=== PATIENT | female | born 1945 | race Caucasian/White ===

== ENCOUNTER 2017-08-08 09:03 | Emergency (ER) | payer MEDICARE, BC ==
--- NOTE | 2017-08-08 09:36 | EDM.PDOC ---
ED HPI GENERAL MEDICAL PROBLEM - General Chief Complaint: General Stated Complaint: Feeling anxious Time Seen by Provider: 08/08/17 09:10 Source of Information: Reports: Patient History Limitations: Reports: No Limitations - History of Present Illness INITIAL COMMENTS - FREE TEXT/NARRATIVE: 72 YO WF presents to ER complaining of "feeling anxious". Pt states she gets these episodes periodically and takes ativan 0.5mg PO PRN. Pt denies chest pain , palpitations, or shortness of breath. Pt states her last anxiety attack was around and thinks the holidays are a trigger for her. Pt denies any suicidal or homicidal idealization, Pt denies auditory/visual hallucinations. Pt was seen by PCP in [place] 07/18/2017 and had a full physical. TSH- WNL. Duration: Chronic Location: Reports: Generalized Quality: Reports: Same as Previous Episode Improves with: Reports: None Worsens with: Reports: None Associated Symptoms: Reports: No Other Symptoms. Denies: Confusion, Chest Pain , Diaphoresis, Nausea/Vomiting, Shortness of Breath, Syncope Treatments [employer] DEPOSIT: Reports: Other Medication(s) Other Treatments [employer] DEPOSIT: ativan - Related Data Allergies Allergy/AdvReac Type Severity Reaction Status Date / Time No Known Drug Allergies Allergy Cannot Verified 08/08/17 09:13 Remember Home Meds: Home Meds Acetaminophen/Diphenhydramine [Tylenol Pm Ex-Strength Caplet] 1 each PO DAILY [History] Aspirin [Adult Low Dose Aspirin EC] 81 mg PO DAILY 08/08/17 [History] Calcium Carbonate/Vitamin D3 [Calcium 600 + Vit D 400 Softgl] 1 tab PO DAILY [History] Cholecalciferol (Vitamin D3) [Vitamin D3] 2,000 unit PO DAILY 08/08/17 [History] Fish Oil/[place]-3 Fatty Acids [Fish Oil] 1 each PO DAILY 08/08/17 [History] LORazepam [Ativan] 1 mg PO BID PRN 08/08/17 [History] Levothyroxine 75 mcg PO ACBREAKFAST 08/08/17 [History] Magnesium 250 mg PO DAILY 08/08/17 [History] Metoprolol Succinate [Toprol Xl] 100 mg PO DAILY 08/08/17 [History] Multivitamin [Multivitamins] 1 each PO DAILY 08/08/17 [History] Potassium 99 mg PO DAILY 08/08/17 [History] amLODIPine [Norvasc] 5 mg PO DAILY 08/08/17 [History] atorvaSTATin [Lipitor] 10 mg PO BEDTIME 08/08/17 [History] Social & Family History - Tobacco Use Smoking Status *Q: Never Smoker Second Hand Smoke Exposure: No - Caffeine Use Caffeine Use: Reports: Coffee, Soda - Alcohol Use Days Per Week of Alcohol Use: 1 Number of Drinks Per Day: 1 Total Drinks Per Week: 1 - Recreational Drug Use Recreational Drug Use: No ED ROS GENERAL - Review of Systems Review Of Systems: See Below Constitutional: Reports: No Symptoms HEENT: Reports: No Symptoms Respiratory: Reports: No Symptoms Cardiovascular: Reports: No Symptoms. Denies: Chest Pain, Palpitations Endocrine: Reports: No Symptoms GI/Abdominal: Reports: No Symptoms : Reports: No Symptoms Musculoskeletal: Reports: No Symptoms Skin: Reports: No Symptoms Neurological: Reports: No Symptoms Psychiatric: Reports: Anxiety. Denies: Agitation, Confusion, Hallucinations, Homicidal Ideation, Mood Lability, Suicidal Ideation Hematologic/Lymphatic: Reports: No Symptoms Immunologic: Reports: No Symptoms ED EXAM, GENERAL - Physical Exam Exam: See Below Exam Limited By: No Limitations General Appearance: Alert, WD/WN, No Apparent Distress, Anxious Eye Exam: Bilateral Eye: EOMI, PERRL Head: Atraumatic, Normocephalic Neck: Normal Inspection, Supple, Non-Tender, Full Range of Motion Respiratory/Chest: No Respiratory Distress, Lungs Clear, Normal Breath Sounds, No Accessory Muscle Use, Chest Non-Tender Cardiovascular: Normal Peripheral Pulses, Regular Rate, Rhythm, No Edema, No Gallop, No JVD, No Murmur, No Rub GI/Abdominal: Normal Bowel Sounds, Soft, Non-Tender, No Organomegaly, No Distention, No Abnormal Bruit, No Mass Back Exam: Normal Inspection, Full Range of Motion, NT Extremities: Normal Inspection, Normal Range of Motion, Non-Tender, Normal Capillary Refill, No Pedal Edema Neurological: Alert, Oriented, CN II-XII Intact, Normal Cognition, Normal Gait, Normal Reflexes, No Motor/Sensory Deficits Psychiatric: Normal Affect, Anxious, Depressed Mood, Tearful. No: Flat Affect Skin Exam: Warm, Dry, Intact, Normal Color, No Rash Lymphatic: No Adenopathy Course - Vital Signs Last Recorded V/S: Last Vital Signs Temp 36.9 C 08/08/17 09:08 Pulse 94 08/08/17 09:08 Resp 20 08/08/17 09:08 BP 163/84 H 08/08/17 09:08 Pulse Ox 97 08/08/17 09:08 Departure - Departure Time of Disposition: 09:52 Disposition: Home, Self-Care 01 Condition: Good Clinical Impression: Anxiety Depression (emotion) Qualifiers: Depression Type: reactive depression Qualified Code(s): F32.9 - Major depressive disorder, single episode, unspecified - Discharge Information Instructions: Panic Attacks, [id number] Referrals: PCP,Not In Area [Primary Care Provider] - Giovana Houser MD [Physician] - - Assessment/Plan Assessment:: 1. anxiety/Depression- situational Plan: 1. discharge home 2. call PCP to consider mood stabilizer with antianxiety component. 3. return to ER for SI/HI or worsening symptoms 4. continue ativan 0.5mg PO BID PRN
[2017-08-08] MEDS ORDERED: LORazepam 2 MG/ML SDV IM ONE (09:42)
== END 2017-08-08 10:00 | disposition home or self-care (01) ==
LOC: KA.ED 09:03
DX: F41.9 Anxiety disorder, unspecified (principal); F32.9 Major depressive disorder, single episode, unspecified; Z79.82 Long term (current) use of aspirin; Z79.899 Other long term (current) drug therapy
CPT/HCPCS: 96372; 99283; J2060

== ENCOUNTER 2020-12-27 09:13 | Day surgery (SDC) | payer MEDICARE, BC ==
[2020-12-27] MEDS ORDERED: Sodium Chloride 0.9% 10 ML Syringe FLUSH PRN (09:30)
[2020-12-27] MEDS ORDERED: Lactated Ringers 1,000 ML IV SCH (09:30)
[2020-12-27] MEDS ORDERED: Midazolam 1 MG/ML 2 ML SDV ONE (10:27)
[2020-12-27] MEDS ORDERED: Propofol 200 MG/20 ML SDV ONE (10:27)
--- NOTE | 2020-12-27 10:50 | PCM.PN ---
- General Info Date of Service: 12/27/20 - Review of Systems Systems Review Comment:: 75-year-old female referred for colonoscopy. Her her last colonoscopy was 6 years ago. She has been experiencing a 6-week history of diarrhea which is unexplained and difficult to control even with medication. I have discussed the proposed colonoscopy with the patient. Risks such as but not limited to bleeding and GI injury reviewed. She agrees to proceed. Her recent history and physical is reviewed and no significant changes are noted. - Patient Data Vitals - Most Recent: Last Vital Signs Temp 96.6 F L 12/27/20 09:30 Pulse 56 L 12/27/20 09:30 Resp 16 12/27/20 09:30 BP 164/72 H 12/27/20 09:30 Pulse Ox 95 12/27/20 09:30 Weight - Most Recent: 66.224 kg Med Orders - Current: Current Medications Lactated Ringer's (Ringers, Lactated) 1,000 mls @ 50 mls/hr IV ASDIRECTED ANTWAN Last Admin: 12/27/20 09:56 Dose: 50 mls/hr Documented by: Sodium Chloride (Sodium Chloride 0.9% 10 Ml Syringe) 10 ml FLUSH Q8HR PRN PRN Reason: keep vein open Discontinued Medications Midazolam HCl (Midazolam 1 Mg/Ml 2 Ml Sdv) Confirm Administered Dose 2 mg .ROUTE .STK-MED ONE Stop: 12/27/20 10:28 Propofol (Propofol 200 Mg/20 Ml Sdv) Confirm Administered Dose 400 mg .ROUTE .STK-MED ONE Stop: 12/27/20 10:28 Sepsis Event Note - Focused Exam Vital Signs: Vital Signs Temp Pulse Resp BP Pulse Ox 12/27/20 09:30 96.6 F L 56 L 16 164/72 H 95 - Problem List Review Problem List Initiated/Reviewed/Updated: Yes - My Orders Last 24 Hours: My Active Orders 12/26/20 16:07 Resuscitation Status Routine 12/27/20 Breakfast Nothing Per Oral Diet [DIET] 12/27/20 09:30 Peripheral IV Care [RC] . DIRECTED Lactated Ringers [Ringers, Lactated] 1,000 ml IV ASDIRECTED Sodium Chloride 0.9% [Saline Flush] 10 ml FLUSH Q8HR PRN Peripheral IV Insertion Adult [OM.PC] Routine 12/27/20 10:00 Patient to Empty Bladder [RC] ASDIRECTED 12/27/20 10:30 Verify Patient Consent Obtain [RC] ASDIRECTED - Assessment Assessment:: Unexplained diarrhea - Plan Plan:: Colonoscopy
--- NOTE | 2020-12-27 11:40 | PCM.OPNOTE ---
- General Post-Op/Procedure Note Date of Surgery/Procedure: 12/27/20 Operative Procedure(s): Colonoscopy with biopsy Findings: Moderate diverticulosis throughout the left and transverse colon without signs of inflammation. Colon and terminal ileum otherwise normal. Pre Op Diagnosis: Unexplained diarrhea Post-Op Diagnosis: Diverticulosis Anesthesia Technique: [facility] [place] Primary Surgeon: Pascual Black Pathology: Biopsies of terminal ileum and colon EBL in mLs: 2 Complications: None Condition: Good
--- NOTE | 2020-12-27 16:47 | OR ---
DATE OF SURGERY: 12/27/2020 SURGEON: Pascual Black MD PREOPERATIVE DIAGNOSIS: Unexplained diarrhea. POSTOPERATIVE DIAGNOSIS: Diverticulosis. OPERATION PERFORMED: Colonoscopy with biopsy. INDICATIONS FOR SURGERY: This 75-year-old female has had a 6-week history of unexplained diarrhea. She comes today for diagnostic colonoscopy. FINDINGS: No visible signs of inflammation or ulceration is seen in the colon or terminal ileum today. The patient does have a moderate degree of diverticulosis extending through the left and transverse colon, but this area does not appear to be acutely inflamed. The colon otherwise appears normal. The terminal ileum mucosa also appears normal. DESCRIPTION OF PROCEDURE: The patient was taken to the operating room. She was given intravenous sedation and with her in the left lateral decubitus position, digital rectal exam was performed showing no rectal masses. The Olympus colonoscope was inserted into the rectum. Retroflexed examination of the rectal canal was performed. The scope was then carefully advanced through the entire length of the colon until the cecum is reached. Cecal acquisition is confirmed by noting the normal internal cecal anatomy including the appendiceal orifice and the ileocecal valve. The light was also noted to transilluminate the abdominal wall in the right lower quadrant. The ileocecal valve was cannulated and the terminal ileum was then examined and it appeared normal. Because of the patient's symptoms, random biopsies of the terminal ileum were taken. The scope was then slowly withdrawn sequentially re-examining the colonic segments. During withdrawal of the scope, random biopsies of the right and left colon were also taken because of her history of diarrhea. After the exam had been completed and no sign of any complication, the scope was removed and the patient was taken from the operating room in satisfactory condition. ESTIMATED BLOOD LOSS: 2 mL. COMPLICATIONS: None. PROGNOSIS: Good. /[id number]/MODL
== END 2020-12-27 13:20 | disposition home or self-care (01) ==
LOC: KA.SDS 09:13
PROVIDERS: ATTEND Surgery
DX: K52.832 Lymphocytic colitis (principal); K57.30 Diverticulosis of large intestine without perforation or abscess without bleeding; Z79.899 Other long term (current) drug therapy; Z79.82 Long term (current) use of aspirin
CPT/HCPCS: 00811; 45380; J2250; J2704; J7120; 88305